=== PATIENT | female | born 1985 | race Two or more races ===

== ENCOUNTER 2023-08-27 14:59 | Emergency (ER) | payer OTHER ==
[~2023-08-27] VITALS: Ht 167.6 cm; Wt 62.6 kg
[2023-08-27 15:14] VITALS: BP 126/71; TEMP 98.1
[2023-08-27] MEDS: ACETAMINOPHEN ES 500 MG TABLET PO ONE (15:43)
[2023-08-27] MEDS ORDERED: ACETAMINOPHEN ES 500 MG TABLET ONE (15:44)
[2023-08-27] MEDS ORDERED: ACET-2605 PO (16:45)
[2023-08-27] MEDS ORDERED: IBUP-1955 PO (16:45)
[2023-08-27 16:53] VITALS: O2SAT 98
== END 2023-08-27 16:53 | disposition home or self-care (01) ==
LOC: ER 15:22
DX: S93.691A Other sprain of right foot, initial encounter (principal); X50.1XXA Overexertion from prolonged static or awkward postures, initial encounter; Y93.89 Activity, other specified; Y92.89 Other specified places as the place of occurrence of the external cause; Y99.8 Other external cause status
CPT/HCPCS: 73630-TC